=== PATIENT | male | born 1930 | race Caucasian/White ===

== ENCOUNTER 2017-12-28 10:33 | Day surgery (SDC) | payer OTHER ==
[2017-12-27 12:22] VITALS: BMI 22.4
[2017-12-28] MEDS ORDERED: PROPOFOL 20 ML ONE ×2 (11:54→14:03)
[2017-12-28] MEDS ORDERED: BACITRACIN 15 GM TUBE TOPICAL OINTMENT ONE (14:01)
[2017-12-28] MEDS ORDERED: ONDANSETRON 4 MG/2 ML VIAL IVPB PRN (14:44)
[2017-12-28] MEDS ORDERED: oxyCODONE HCL 5 MG TABLET PO PRN ×2 (14:44)
[2017-12-28] MEDS ORDERED: LACTATED RINGERS SOLUTION 1,000 ML IV SCH (14:45)
--- NOTE | 2017-12-28 14:48 | OP ---
Operative Note - Note: Operative Date: 12/28/17 Pre-Operative Diagnosis: right cheek wound Operation: right cheek flap and split thickness skin graft to right cheek Post-Operative Diagnosis: Same as Pre-op Surgeon: Deven Hernandez Anesthesia: General Operative Report Dictated: Yes
[2017-12-28] MEDS ORDERED: ACETAMINOPHEN 325 MG TABLET (FP) PO PRN (14:52)
--- NOTE | 2017-12-28 15:38 | OP ---
DATE OF OPERATION: 12/28/2017 TITLE OF PROCEDURES: 1. Right cheek reconstruction with cheek flap face lift reconstruction. 2. Ten square centimeter split-thickness skin graft to right cheek for reconstruction from the right thigh. 3. Debridement of right cheek wound in preparation for flap and skin graft reconstruction. ATTENDING SURGEON: Deven Samaniego MD ASSISTANTS: There were no assistants. ANESTHESIA: General endotracheal anesthesia. Patient received 30 mL of 0.5% lidocaine with 1:200,000 epinephrine. This is given preoperatively before prepping and draping. The patient was positioned in a supine position. Position was carefully checked by surgical and anesthesia teams. After the patient is given 2 g of Ancef preoperatively, MADDIE stocking and sequential compression stockings were used, the timeout is called. Patient, procedure, side, sites are verified. At this point, the wound is curetted in preparation for reconstruction. The edges of the wound are excised and marsupialized. The flap is then elevated in a face lift plane along the neck and cheek skin. The flap is then mobilized and rotated superior laterally. It is inset to the posterior neck skin with a series of interrupted buried 4-0 Monocryl suture. A Vanessa triangle donor site is excised and closed primarily with a series of interrupted 4-0 Monocryl suture in the deep dermis. The flap is inset, as well as the donor site closed with a running 5-0 nylon suture. A residual, [id number] skin defect is left preauricularly. For this, a split-thickness skin graft is patterned and harvested from the right thigh. This is harvested at twenty-five one-thousandths of an inch. The donor site for the skin graft is dressed with Xeroform, Telfa, ABD, and a 6-inch José Miguel wrap. The graft is pie-crusted, oriented, trimmed to conform to the defect, and secured to the borders of the defect with a running 5-0 chromic gut suture. A tie-over bolster is then prepared and placed with bacitracin, Xeroform, and cotton, using 3-0 silk and 2-0 nylon sutures for the tie-over. Good compression is achieved. The patient is awoken from anesthesia, having tolerated the procedure well, transferred to recovery without complication. DEVEN SAMANIEGO M.D. [id number]
[2017-12-28 16:46] VITALS: TEMP 97.5
[2017-12-28 16:52] VITALS: BP 132/77; PULSE 60
== END 2017-12-28 16:40 | disposition home or self-care (01) ==
LOC: FASU 10:33
PROVIDERS: ATTEND Plastic Surgery
PROC: 0HBHXZZ Excision of Right Upper Leg Skin, External Approach (ICD-10-PCS; 2017-12-28)
PROC: 0HX1XZZ Transfer Face Skin, External Approach (ICD-10-PCS; 2017-12-28)
PROC: 0HR1X74 Replacement of Face Skin with Autologous Tissue Substitute, Partial Thickness, External Approach (ICD-10-PCS; principal; 2017-12-28 13:29)
DX: S01.401D Unspecified open wound of right cheek and temporomandibular area, subsequent encounter (principal); X58.XXXD Exposure to other specified factors, subsequent encounter
CPT/HCPCS: 94760